=== PATIENT | female | born 1955 | race Caucasian/White ===

== ENCOUNTER 2017-08-03 05:26 | Inpatient (IN) | payer OTHER ==
--- NOTE | 2017-07-31 13:25 | MH ---
cc: Walker PERRY M.D. DATE OF ADMISSION 08/03/2017 ADMITTING DIAGNOSIS Osteoarthritic degeneration left knee HISTORY AND PHYSICAL This is a pleasant 61-year-old diabetic female who is being admitted today for a left total knee arthroplasty due to severe painful osteoarthritic degeneration left knee. OTHER PAST HISTORY Other than diabetes, she has a history of anxiety and hypertension. CURRENT MEDICATIONS Include: 1. Bupropion 2. Exforge 3. Venlafaxine 4. Omeprazole for gastroesophageal reflux disease 5. Lovastatin 6. Fluticasone 7. Nasal spray PAST SURGERIES Include: 1. Appendectomy 2. Three C-sections 3. Hysterectomy 4. 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 Meniscal repair tendon right knee in 2008. REVIEW OF SYSTEMS Noncontributory FAMILY HISTORY Noncontributory SOCIAL HISTORY She does not smoke. Drinks occasionally. ALLERGIES She has no known allergies. PHYSICAL EXAMINATION We find a 61-year female well-developed, well-nourished oriented x3 complaining of pain in the left knee. VITAL SIGNS: Blood pressure 128/82, pulse 89 and regular, respirations 18, temperature 97.9, pulse oximetry 98% on room air. HEENT: Eyes PERRL, EOMI. Ears, nose, mouth clear. NECK: Supple. LUNGS: Clear HEART: Regular rate. ABDOMEN: Soft. Positive bowel sounds, nontender. EXTREMITIES: Reveals the left knee to be exclusively tender along the medial joint surface and proximal medial tibial plateau. IMPRESSION AT THIS TIME Severe osteoarthritic degeneration left knee. PLAN Admission for a left total knee arthroplasty today. The patient given a prescription for postoperative pain and anticoagulation control in the office. She understands to use Hibiclens scrub and Bactroban preoperatively and plans on going home after surgical stay in the hospital with home health care and physical therapy. MD YUE Alberto/JAYDEN /1:11 PM /1:18 PM
[~2017-08-03] VITALS: Ht 162.6 cm; Wt 84.5 kg
[2017-08-03] MEDS ORDERED: ceFAZolin 2 GM PREMIX 50 ML IV SCH (06:00)
[2017-08-03] MEDS ORDERED: CHLORHEXIDINE GLUCONATE 2 % 1 PACK (2 CLOTHS) TOPICAL PRN (06:00)
[2017-08-03] MEDS ORDERED: SODIUM CHLORID 0.9% 500 ML IV PRN (06:00)
[2017-08-03] MEDS ORDERED: METOPROLOL TARTRATE 25 MG TAB PO PRN (06:00)
[2017-08-03] MEDS ORDERED: CHLORHEXIDINE GLUCONATE 4% SOLN 120 ML BTL TOPICAL SCH (06:00)
[2017-08-03] MEDS ORDERED: POVIDONE IODINE 5% (ANTISEPSIS KIT) 4 APPLICATIONS EACH NARE PRN (06:00)
[2017-08-03] MEDS ORDERED: INSULIN HUMAN REGULAR 1,000 UNITS/10 ML VIAL SQ PRN (06:00)
[2017-08-03] MEDS ORDERED: VANCOMYCIN 1000 MG/NS 250 ML (for <70 kg) IV SCH ×2 (06:00)
[2017-08-03] MEDS ORDERED: LACTATED RINGER'S 1000 ML IV PRN (06:00)
[2017-08-03] MEDS ORDERED: IBUP200C PO (06:23)
[2017-08-03] MEDS ORDERED: VENL37.54 PO (06:23)
[2017-08-03] MEDS ORDERED: LOVA20TA PO (06:23)
[2017-08-03] MEDS ORDERED: MULTTAB67 PO (06:23)
[2017-08-03] MEDS ORDERED: BUPR300T PO (06:23)
[2017-08-03] MEDS ORDERED: EXFO10TA2 PO (06:23)
[2017-08-03] MEDS ORDERED: FLUT50SP EACH NARE (06:23)
[2017-08-03] MEDS ORDERED: CRANCAP2 PO (06:23)
[2017-08-03] MEDS ORDERED: OMEP20TA PO (06:23)
[2017-08-03] MEDS ORDERED: BOSW5TAB PO (06:23)
[2017-08-03] MEDS ORDERED: FISHCAP4 PO (06:23)
[2017-08-03] MEDS ORDERED: ceFAZolin INJ 1,000 MG VIAL ONE (07:00)
[2017-08-03 07:15] LABS: APTT (PATIENT) 27.5 SEC (24.3-30.1); PROTHROMBIN TIME - PATIENT 10.6 SEC (9.8-11.6)
[2017-08-03] MEDS ORDERED: ACETAMINOPHEN 1000 MG/100 ML 100 ML IV ONE (07:26)
[2017-08-03] MEDS ORDERED: FAMOTIDINE 20 MG/2 ML VIAL ONE (07:27)
--- NOTE | 2017-08-03 07:56 | HHI.FF ---
Face to Face Verification Diagnosis: (1) Status post total left knee replacement using cement Physical Therapy Gait training Knee: Total knee, Protocol: Left, Full weight bearing Canvas Knee Splint: When in bed & 2 pillows btw thighs Nursing RN: 3 days/week x 2 weeks Nursing: Dressing changes Dressing Changes: Daily dressing change, 4x4s, Gauze, Paper tape I have seen patient Mayra Bello on 08/03/17. My clinical findings support the need for the requested home health care services because: Limited ability to care for self High risk of falls I certify that my clinical findings support that this patient is homebound because: Unsteady gait/balance Walker Fairchild MD Aug 03, 2017 07:56
[2017-08-03] MEDS ORDERED: SODIUM CHLORIDE 0.9% IV SCH ×2 (08:00→11:00)
[2017-08-03] MEDS ORDERED: SODIUM CHLORIDE 0.9% FLUSH 5 ML FLUSH IVF PRN (08:00)
[2017-08-03] MEDS ORDERED: Post-op Orders (for Pharmacy) MISC XX ONE (08:00)
[2017-08-03] MEDS ORDERED: TRANEXAMIC ACID INJ 0 MG in SODIUM CHLORIDE 0.9% INJ 100 ML IV SCH (08:00)
[2017-08-03] MEDS ORDERED: ACETAMINOPHEN 325 MG TAB PO PRN (08:00)
[2017-08-03] MEDS ORDERED: COMMODE 3-IN-11 MIS (08:00)
[2017-08-03] MEDS ORDERED: EXPAREL PERI-ARTICULAR INJECTION (TOTAL VOL. 120 ML) P-ARTICULR SCH ×2 (08:00)
[2017-08-03] MEDS ORDERED: WALKER WHEELS/F1 MIS (08:00)
[2017-08-03] MEDS ORDERED: ONDANSETRON HCL 4 MG/2 ML VIAL IVP PRN (08:00)
[2017-08-03] MEDS ORDERED: NALOXONE HCL 0.4 MG/ML AMP IV PRN (08:00)
[2017-08-03] MEDS ORDERED: diphenhydrAMINE HCL 50 MG/ML VIAL IV PRN (08:00)
[2017-08-03] MEDS ORDERED: TRANEXAMIC ACID IV SCH ×2 (08:00→11:00)
[2017-08-03] MEDS ORDERED: MORPHINE SULFATE 4 MG/ML INJ IV PUSH PRN (08:00)
[2017-08-03] MEDS ORDERED: CPMMACHINE (08:01)
[2017-08-03] MEDS: SODIUM CHLORIDE 0.9% FLUSH 5 ML FLUSH IVF SCH ×2 (09:00→21:00)
[2017-08-03] MEDS ORDERED: NON-FORMULARY DRUG (Boswellia-Glucosamine-Vitamin (Osteo Bi-Flex One A Day) 1 TAB) PO SCH (09:00)
[2017-08-03] MEDS ORDERED: NON-FORMULARY DRUG (Fish Oil-Cholecalciferol (Fish Oil + D3) 1 CAP) PO SCH (09:00)
[2017-08-03] MEDS ORDERED: NON-FORMULARY DRUG (Vitamins C & E (Cranberry Urinary Comfort) 1 CAP) PO SCH (09:00)
[2017-08-03] MEDS: FLUTICASONE PROPIONATE 50 MCG/ACT 16 GM NASAL SPRAY EACH NARE SCH ×2 (10:00→21:00)
[2017-08-03] MEDS: PRAVASTATIN SOD 20 MG TAB PO SCH (10:00)
[2017-08-03] MEDS: VENLAFAXINE HCL XR 37.5 MG CAP PO SCH (10:00)
[2017-08-03] MEDS: PANTOPRAZOLE SOD 20 MG DELAYED RELEASE TAB PO SCH (10:00)
[2017-08-03] MEDS ORDERED: MULTIVITAMIN TAB PO SCH (10:00)
[2017-08-03] MEDS: VALSARTAN 160 MG TAB PO SCH (10:00)
[2017-08-03] MEDS ORDERED: DO NOT ADM ANY ANTICOAGULANT DRUGS PRN (10:22)
--- NOTE | 2017-08-03 10:24 | HHI.PR ---
Immediate Post Op Note Procedure Date: Aug 03, 2017 Pre Op Diagnosis: Osteoarthritic degeneration left knee Post Op Diagnosis: Osteoarthritic degeneration left knee Surgeon: Justa Fairchild MD Excellence Manager(s): Andria DUGGNA Procedure: Left Total Knee Arthroplasty Complications: none Specimen(s) removed: none Estimated blood loss: 100cc Anesthesia: General Drains: None IVF Urinary Output (mLs): 0 (no martin) Tourniquet time (min at mmHg) 300mg Hg for 56 mins Patient to: PACU Patient Condition: Good Implant/Devices: SEE IMPLANT LOG (if applicable) Date/Time of Procedure: SEE SURGICAL CARE RECORD Andria Wilson Aug 03, 2017 10:24
[2017-08-03] MEDS: LACTATED RINGER'S 1000 ML INJ 1,000 ML IV SCH ×2 (11:00→23:30)
--- NOTE | 2017-08-03 11:05 | MP ---
cc: Walker PERRY M.D. DATE OF SURGERY 08/03/2017 PREOPERATIVE DIAGNOSIS Osteoarthritic degeneration left knee. POSTOPERATIVE DIAGNOSIS Osteoarthritic degeneration left knee. SURGERY PERFORMED Left total knee arthroplasty using Consensus components, size 4 femur, size 2 tibia with a 10-mm insert, size 2 patella, two batch of DePuy cement SURGEON Dr. Perry COMMUNITY SUPPORT WORKER URBAN Dee ANESTHESIA General intubation and block. PROCEDURE FOLLOWS After successful induction of anesthesia, the patient is placed on the operating room table in the supine position. The knee is prepped and draped in the usual manner. A tourniquet is inflated at the upper thigh and set to 300 mmHg pressure after exsanguination of the lower extremity. A longitudinal incision is made extending from 3 inches proximal to the superior pole of the patella, across the patella in longitudinal fashion, and down past the insertion of the tibial tubercle into the proximal tibia. The incision is carried down through subcutaneous tissue along the medial aspect of the patella and retinaculum, down through the capsule to expose the knee joint. The patella and patellar tendon are freed up enough to allow the patella to be inverted and retracted off the lateral side of the knee joint. The knee joint is left exposed. Small osteophytes are removed. All soft tissue is removed to allow proper position of the femoral and tibial cutting jig guide. The first femoral jig is then inserted along the distal end of the femur after first measuring to decide whether this is a small, medium, or large component. The notch is then drilled and the tibial cutting guide inserted into the femoral cutting guide, along with the ankle brace to allow for proper measurement of the tibial cutting surface that needed to be resected. Pins are inserted into the tibial cutting jig and femoral cutting jig to hold them in place. An oscillating saw is then used to resect the surface of the tibia. The surface of the tibia is then completely removed using sharp and blunt dissection. The anterior and posterior cuts of the femur are then made as well using an oscillating saw through the cutting guide. All guides are then removed and the varus/valgus angulation cutting guide applied to the femur for proper measurement of the proper amount of valgus. The anterior cutting guide for the femur is then inserted at the anterior femoral cuts made. Next, the first block trial is inserted into the femur to allow for proper condyle drill holes to be made which are then made followed by removal of the bone between the condyles using an oscillating saw as well as the bone removed at the most posterior surface of the condyle. After this, this guide is removed and the chamfer cuts made using the chamfer cutting guide from both anterior and posterior. Next, the femoral trial is then inserted, the tibial surface reflected anterior to expose the tibial surface and a tibial stem guide is inserted after first measuring for a standard, standard plus, large, or large plus surface to be used. After the stem is impacted the trial tibial surface is applied followed by the trial meniscal components. After full range of motion is found with the appropriate length meniscal components varying the patella is prepared by resecting the posterior aspect of the patella using an oscillating saw, inserting a trial. The trial is then removed and the cruciate cutting guide applied using the bur to cut the cruciate cuts. After cruciate cuts are made all trials are removed. The wound is irrigated copiously with antibiotic solution and Water Pik and the actual components inserted into place using Consensus components, size 4 femur, size 2 tibia with a 10-mm insert, size 2 patella, two batch of DePuy cement. After the cement has hardened and the components are found to have full range of motion with no instability, the tourniquet is deflated, total tourniquet time being 57 minutes at 300 mmHg pressure. 100 cc of Exparel was used around the knee joint for extra pain control. Meticulous hemostasis was achieved, the deep fascia approximated with running #2 Quill, the subcutaneous tissue approximated using interrupted and running 2-0 and 3-0 Monocryl sutures, Steri-Strips and sterile dressing and knee immobilizer. No drain was utilized. ESTIMATED BLOOD LOSS 100 cc. COUNTS Sponge and suture counts were correct. DISPOSITION The patient tolerated the procedure well and left the operating room in satisfactory condition. URBAN Dee, was present during the entire procedure to include patient positioning and the procedure. The medical necessity of a nurse practitioner and human resources executive assistant was indicated in this case due to the surgical complexity of the case itself. During the surgical case, the surgical technologist was working the back table while my surgical processor URBAN was directly assisting me. MD YUE Alberto/LASHONDA Craig: 08/03/2017/10:05 AM /10:55 AM
--- NOTE | 2017-08-03 11:26 | RADRPT ---
EXAM DATE/TIME: 08/03/2017 10:36 [facility] COMPARISON: No previous studies available for comparison. INDICATIONS : Post op left knee MEDICAL HISTORY : None. SURGICAL HISTORY : left knee replaced ENCOUNTER: Initial ACUITY: 1 day PAIN SCORE: 6/10 LOCATION: Left knee FINDINGS: Examination of the knee demonstrates arthroplasty in satisfactory position. The alignment is anatomic . CONCLUSION: Post surgical changes as above. Jordy Corona MD on August 03, 2017 at 11:14 Board Certified Radiologist. This report was verified electronically.
[2017-08-03] MEDS ORDERED: LACTATED RINGER'S 1000 ML INJ 1,000 ML IV ONE (12:00)
[2017-08-03] MEDS ORDERED: ePHEDrine/NS 25 MG/5 ML SYR IV ONE (12:00)
[2017-08-03] MEDS ORDERED: PROPOFOL 200 MG/20 ML AMP IV ONE (12:00)
[2017-08-03] MEDS ORDERED: LIDOCAINE HCL 1% PF 5 ML AMPULE OTHER ONE (12:00)
[2017-08-03] MEDS ORDERED: GLYCOPYRROLATE 1 MG/5 ML SYRINGE IV PUSH ONE (12:00)
[2017-08-03] MEDS ORDERED: MIDAZOLAM HCL 2 MG/2 ML VIAL IV ONE (12:00)
[2017-08-03] MEDS ORDERED: ROCURONIUM INJ 50 MG/5 ML VIAL IV ONE (12:00)
[2017-08-03] MEDS ORDERED: DEXAMETHASONE SOD PHOS 4 MG/ML VIAL IV ONE (12:00)
[2017-08-03] MEDS ORDERED: NEOSTIGMINE 3 MG/3 ML SYR IV ONE (12:00)
[2017-08-03] MEDS ORDERED: PHENYLEPH/NS 1000 MCG/10 ML SYR IV ONE (12:00)
[2017-08-03] MEDS ORDERED: ONDANSETRON HCL 4 MG/2 ML VIAL IV PUSH ONE (12:00)
[2017-08-03 14:30] VITALS: BP 130/78; PULSE 98; RESP 16; TEMP 98.9; O2SAT 95
[2017-08-03] MEDS ORDERED: *morphine SULFATE 8 MG/ML PERIprocedure ONLY ONE (15:24)
--- NOTE | 2017-08-03 16:58 | PD.CONS ---
HPI Service [facility] Consult Requested By Dr. Fairchild Reason for Consult Medical management Primary Care Physician Ad Caputo MD Diagnoses: History of Present Illness 61-year-old female with a medical history significant for osteoarthritis, anxiety, and hypertension admitted to the hospital for left total knee arthroplasty. Patient reports she has had issues with osteoarthritis of the left knee for over a year. She has tried conservative management including injections with no improvement. She reports her blood pressure has been stable on her current medications. Anxiety has been controlled as well. She is seen postoperatively in the PACU. She is currently comfortable. Pain is controlled. Review of Systems Constitutional: DENIES: Fever, Chills Musculoskeletal: COMPLAINS OF: Joint pain, Stiffness Except as stated in HPI: all other systems reviewed are Neg Past Family Social History Allergies: Coded Allergies: No Known Allergies (Unverified , 08/03/17) Past Medical History Osteoarthritis Hypertension Hyperlipidemia Anxiety Diabetes, diet-controlled. 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 Reported Medications Reported Meds & Active Scripts Active Reported Cranberry Urinary Comfort (Vitamins C & E) 1 Cap 1 Cap PO DAILY Fish Oil + D3 (Fish Oil-Cholecalciferol) 1,200-1,000 Mg-Unit Cap 1 Cap PO DAILY Multiple Vitamin 1 Tab 1 Tab PO DAILY Ibuprofen 200 Mg Cap 200 Mg PO Q4H PRN Osteo Bi-Flex One A Day (Cyggvgmmk-Somrzftplry-Hhbghjw) 1 Tab 1 Tab PO DAILY Fluticasone Nasal [place] 50 Mcg/Act Naspr 50 Mcg EACH NARE BID 50 mcg/spray Lovastatin 20 Mg Tab 20 Mg PO DAILY Omeprazole 20 Mg Tab 20 Mg PO DAILY Venlafaxine ER 24 HR (Venlafaxine HCl) 37.5 Mg Tab 37.5 Mg PO DAILY Exforge (Amlodipine-Valsartan) 10-320 Mg Tab 1 Tab PO DAILY Bupropion HCl ER 24 HR (Bupropion HCl) 300 Mg Tab 300 Mg PO DAILY Family History Reviewed and is noncontributory. Social History Patient does not smoke. She drinks a couple glasses of wine daily. No history of withdrawals. No drug use. Physical Exam Vital Signs Vital Signs Date Time Temp Pulse Resp B/P (MAP) Pulse Ox O2 Delivery O2 Flow Rate FiO2 08/03/17 15:00 99 17 126/72 (90) 98 Nasal Cannula 3 08/03/17 14:00 90 17 128/75 (92) 98 Nasal Cannula 3 08/03/17 13:30 98 15 135/78 (97) 96 Nasal Cannula 3 08/03/17 13:00 100 15 117/75 (89) 96 Nasal Cannula 3 08/03/17 12:30 96 15 121/72 (88) 96 Nasal Cannula 3 08/03/17 12:00 96 16 125/75 (92) 96 Nasal Cannula 3 08/03/17 11:30 98 16 113/70 (84) 94 Nasal Cannula 3 08/03/17 11:15 97 16 125/78 (94) 95 Nasal Cannula 3 08/03/17 11:00 93 16 118/74 (89) 95 Nasal Cannula 3 08/03/17 10:45 94 17 108/69 (82) 95 Nasal Cannula 3 08/03/17 10:30 94 15 110/65 (80) 95 Nasal Cannula 3 08/03/17 10:24 98.1 95 15 111/64 (80) 95 Nasal Cannula 3 08/03/17 06:25 98.0 86 18 145/85 (105) 98 Physical Exam GENERAL: This is a well-nourished, well-developed patient, in no apparent distress. SKIN: No rashes, ecchymoses or lesions. Cool and dry. HEAD: Atraumatic. Normocephalic. No temporal or scalp tenderness. EYES: Pupils equal round and reactive. Extraocular motions intact. No scleral icterus. No injection or drainage. ENT: Nose without bleeding, purulent drainage or septal hematoma. Throat without erythema, tonsillar hypertrophy or exudate. Uvula midline. Airway patent. NECK: Trachea midline. No JVD or lymphadenopathy. Supple, nontender, no meningeal signs. CARDIOVASCULAR: Regular rate and rhythm without murmurs, gallops, or rubs. RESPIRATORY: Clear to auscultation. Breath sounds equal bilaterally. No wheezes , rales, or rhonchi. GASTROINTESTINAL: Abdomen soft, non-tender, nondistended. No hepato-splenomegaly , or palpable masses. No guarding. MUSCULOSKELETAL: Left knee and postsurgical dressing. Neurovascularly intact at the toes. NEUROLOGICAL: Awake and alert. Cranial nerves II through XII intact. Motor and sensory grossly within normal limits. Five out of 5 muscle strength in all muscle groups. Normal speech. Laboratory Laboratory Tests Test 10/2/17 06:40 Prothrombin Time 10.6 Prothromb Time International Ratio 1.0 Activated Partial Thromboplast Time 27.5 Assessment and Plan Problem List: (1) Osteoarthritis of left knee ICD Code: M17.12 - Unilateral primary osteoarthritis, left knee Plan: Status post left knee arthroplasty. Continue routine postoperative care per orthopedics. Pain control, PT. (2) Status post total left knee replacement using cement ICD Code: Z96.652 - Presence of left artificial knee joint (3) Hypertension ICD Code: I10 - Essential (primary) hypertension Plan: Currently controlled on amlodipine and valsartan. Continue to monitor. (4) Anxiety ICD Code: F41.9 - Anxiety disorder, unspecified Plan: Continue bupropion and Effexor. (5) Diabetes ICD Code: E11.9 - Type 2 diabetes mellitus without complications Plan: Diet controlled, on no medications. Diabetic diet, check BMP in a.m. Assessment and Plan Thank you for allowing me to participate in the care of Mrs. Bello. Will continue to follow. Ankush Lawrence MD Aug 03, 2017 16:58
[2017-08-03] MEDS: ACETAMINOPHEN/HYDROcodone 325 MG/7.5 MG TAB PO PRN ×2 (18:38→22:33)
--- NOTE | 2017-08-03 19:22 | EKG ---
Date Performed: 08/03/2017 Time Performed: 06:45:47 PTAGE: 61 years EKG: Sinus rhythm INCOMPLETE RIGHT BUNDLE BRANCH BLOCK BORDERLINE ECG NO PREVIOUS TRACING DOCTOR: Bakari Orlando Interpretating Date/Time 08/03/2017 19:20:21
[2017-08-03 20:00] VITALS: BP 156/90; PULSE 98; RESP 22; TEMP 98.1; O2SAT 98
[2017-08-03] MEDS: buPROPion HCL 150 MG SUSTAINED RELEASE TAB PO SCH ×2 (21:00→22:34)
[2017-08-03] MEDS ORDERED: TEMAZEPAM 15 MG CAP PO PRN (21:00)
[2017-08-04] VITALS (8 sets, daily range): BP systolic 113–129; BP diastolic 69–84; PULSE 74–92; RESP 16–20; TEMP 96–98.5; O2SAT 94–96
[2017-08-04] MEDS: ACETAMINOPHEN/HYDROcodone 325 MG/7.5 MG TAB PO PRN ×5 (04:29→20:56)
[2017-08-04] MEDS: PANTOPRAZOLE SOD 20 MG DELAYED RELEASE TAB PO SCH (08:45)
[2017-08-04] MEDS: VALSARTAN 160 MG TAB PO SCH (08:46)
[2017-08-04] MEDS: buPROPion HCL 150 MG SUSTAINED RELEASE TAB PO SCH ×2 (08:46→20:55)
[2017-08-04] MEDS: APIXABAN 2.5 MG TABLET PO SCH ×2 (08:47→20:55)
[2017-08-04] MEDS: VENLAFAXINE HCL XR 37.5 MG CAP PO SCH (08:47)
[2017-08-04] MEDS: PRAVASTATIN SOD 20 MG TAB PO SCH (08:47)
[2017-08-04] MEDS: FLUTICASONE PROPIONATE 50 MCG/ACT 16 GM NASAL SPRAY EACH NARE SCH ×2 (08:47→20:56)
[2017-08-04] MEDS: SODIUM CHLORIDE 0.9% FLUSH 5 ML FLUSH IVF SCH ×2 (08:48→20:56)
[2017-08-04 10:17] LABS: REVIEW FLAG FINAL
[2017-08-04 10:22] LABS: BICARBONATE 27.5 MEQ/L (21.0-32.0); POTASSIUM 3.9 MEQ/L (3.5-5.1)
--- NOTE | 2017-08-04 11:11 | PD.ORT.PN ---
Subjective Subjective Remarks pt comfortable without complaints. Objective Vitals Vital Signs Date Time Temp Pulse Resp B/P (MAP) Pulse Ox O2 Delivery O2 Flow Rate FiO2 08/04/17 09:50 18 08/04/17 07:43 96.5 77 18 126/79 (95) 95 08/04/17 04:00 97.9 74 20 129/73 (91) 94 08/04/17 03:59 95 08/04/17 00:00 97.6 75 20 113/69 (84) 94 08/03/17 20:00 98.1 98 22 156/90 (112) 98 08/03/17 19:27 Room Air 08/03/17 16:30 98.2 99 17 131/80 (97) 98 Nasal Cannula 3 08/03/17 15:00 99 17 126/72 (90) 98 Nasal Cannula 3 08/03/17 14:30 98.9 98 16 130/78 (95) 95 08/03/17 14:00 90 17 128/75 (92) 98 Nasal Cannula 3 08/03/17 13:30 98 15 135/78 (97) 96 Nasal Cannula 3 08/03/17 13:00 100 15 117/75 (89) 96 Nasal Cannula 3 08/03/17 12:30 96 15 121/72 (88) 96 Nasal Cannula 3 08/03/17 12:00 96 16 125/75 (92) 96 Nasal Cannula 3 08/03/17 11:30 98 16 113/70 (84) 94 Nasal Cannula 3 08/03/17 11:15 97 16 125/78 (94) 95 Nasal Cannula 3 I/O 08/03/17 08/03/17 08/03/17 08/04/17 08/04/17 08/04/17 07:00 15:00 23:00 07:00 15:00 23:00 Intake Total 1800 ml 905 ml 1610 ml 260 ml Output Total 3100 ml 0 ml Balance -1300 ml 905 ml 1610 ml 260 ml Intake Oral 480 ml 480 ml IV Total 1800 ml 425 ml 1130 ml 260 ml Output Urine Total 0 ml Estimated Blood Loss 100 ml Other 3000 ml # Voids 2 Result Diagram: 08/04/17 0808 08/04/17 0808 Objective Remarks Sitting up in chair. Dressing dry and intact. No calf tenderness. Assessment & Plan Ortho Post Op Day #: 1 Problem List: Assessment and Plan Cont PT, daily wound care. Regular diet. Home tomorrow with HHC and PT. Walker Fairchild MD Aug 04, 2017 11:11
--- NOTE | 2017-08-04 11:16 | HHI.DS ---
Discharge Summary Admission Date Aug 03, 2017 at 05:26 Discharge Date: Aug 05, 2017 Admitting Diagnosis Osteoarthritic degeneration left knee Diagnosis: (1) Status post total left knee replacement using cement Diagnosis: Principal ICD Codes: Z96.652 - Presence of left artificial knee joint Brief History This is a 61 year old female patient CBC/BMP: 08/04/17 0808 08/04/17 0808 Significant Findings Laboratory Tests Test 08/03/17 06:40 08/04/17 08:08 Estimat Glomerular Filtration Rate 75 ML/MIN (>89) PE at Discharge Sitting up in chair. Dressing dry and intact. No calf tenderness. Hospital Course Patient underwent a left total knee arthroplasty on day of admission. She received a course of prophylactic IV antibiotics and within 23 hours started on anticoagulation therapy. She remained afebrile vital signs stable and neurovascularly intact tolerating food and fluid well. He tolerated by mouth pain meds as well received daily wound care and was discharged on second postoperative day to home with home healthcare and physical therapy in good condition with instructions for follow-up appointment in the office. Pt Condition on Discharge: Good Discharge Disposition: Disch w/ Home Health Serv Discharge Instructions Diet Instructions: As Tolerated, No Restrictions Activities You Can Perform: Weight Bearing as Deandre, Shower Only-No Bath Activities to Avoid: Bathing, Driving Walker Fairchild MD Aug 04, 2017 11:16
--- NOTE | 2017-08-04 18:13 | HHI.PR ---
Subjective Remarks Follow-up total left knee arthroplasty, hypertension, diabetes, and anxiety. Knee pain reported to be well controlled. Noted to 5/10 at time of interview. Pt asking for pain medications "every [address] Fairchild told me to do." Pt stated she was walking "since yesterday afternoon." Pt denied blood pressure issues this morning. Pt stated her diabetes is well controlled with diet. She has not been on her medication for 9 months, has lost 20 pounds and her last Ha1c was "5.4 two weeks ago." Anxiety is reported to be well controlled with home medications. No acute issues reported by pt. Pt denied fever, chills, NVD, Abdominal/chest pain, cough/shortness of breath. Per RN (Bri) no acute issues noted or reported over night or since start of shift. Objective Vitals Vital Signs Date Time Temp Pulse Resp B/P (MAP) Pulse Ox O2 Delivery O2 Flow Rate FiO2 08/04/17 16:00 97.1 91 18 125/71 (89) 94 08/04/17 13:52 18 08/04/17 11:47 96.0 92 18 123/84 (97) 96 08/04/17 07:43 96.5 77 18 126/79 (95) 95 08/04/17 04:00 97.9 74 20 129/73 (91) 94 08/04/17 03:59 95 08/04/17 00:00 97.6 75 20 113/69 (84) 94 08/03/17 20:00 98.1 98 22 156/90 (112) 98 08/03/17 19:27 Room Air I/O 08/03/17 08/03/17 08/03/17 08/04/17 08/04/17 08/04/17 07:00 15:00 23:00 07:00 15:00 23:00 Intake Total 1800 ml 905 ml 1610 ml 1110 ml Output Total 3100 ml 0 ml Balance -1300 ml 905 ml 1610 ml 1110 ml Intake Oral 480 ml 480 ml 850 ml IV Total 1800 ml 425 ml 1130 ml 260 ml Output Urine Total 0 ml Estimated Blood Loss 100 ml Other 3000 ml # Voids 2 2 Result Diagram: 08/04/17 0808 08/04/17 0808 Imaging Last Impressions Knee X-Ray 08/03/17 0000 Signed Impressions: Service Date/Time: Thursday, August 03, 2017 10:36 - CONCLUSION: Post surgical changes as above. Jordy Corona MD Objective Remarks GENERAL: Patient sitting comfortably in chair at bedside, NAD. at bedside. SKIN: Warm and dry. Left knee wrapped with Kerlix. HEAD: Normocephalic. EYES: No scleral icterus. No injection or drainage. NECK: Supple, trachea midline. No lymphadenopathy. CARDIOVASCULAR: Regular rate and rhythm without murmurs, gallops, or rubs. RESPIRATORY: Breath sounds equal bilaterally. No wheezes rhonchi or crackles. No accessory muscle use. GASTROINTESTINAL: Abdomen soft, non-tender, nondistended. MUSCULOSKELETAL: No cyanosis, or edema. PSYCHIATRIC: Appropriate mood and affect; insight and judgment normal. Patient was pleasant and cooperative. Speech was clear and fluent. Procedures Total left knee arthroplasty (08/03/17). Medications and IVs Current Medications Medications (Trade) Dose Ordered Sig/Delilah Route Start Time Stop Time Status Last Admin (Hibiclens 4% Top Soln) 1 applic ONCE TOPICAL 08/03/17 06:00 08/06/17 05:59 08/03/17 06:30 Cefazolin Sodium/ Dextrose 50 ml @ 100 mls/hr AIRPLANE REFUELER IV 08/03/17 06:00 08/06/17 05:59 08/03/17 08:33 Vancomycin HCl 1000 mg/Sodium Chloride 250 ml @ 250 mls/hr AIRPLANE REFUELER IV 08/03/17 06:00 08/06/17 05:59 08/03/17 06:57 (Lopressor) 25 mg AIRPLANE REFUELER PRN PO 08/03/17 06:00 08/06/17 05:59 (Betadine 5% Antisepsis Kit) 1 applic AIRPLANE REFUELER PRN EACH NARE 08/03/17 06:00 08/06/17 05:59 (Chlorhexidine 2% Cloth) 3 pack AIRPLANE REFUELER PRN TOPICAL 08/03/17 06:00 08/06/17 05:59 08/03/17 05:40 (NovoLIN R INJ) See Protocol Table ... AIRPLANE REFUELER PRN SQ 08/03/17 06:00 08/06/17 05:59 (Wellbutrin Sr) 150 mg BID PO 08/03/17 10:00 08/04/17 08:46 (Flonase Anurag Spr) 1 spray BID EACH NARE 08/03/17 10:00 08/04/17 08:47 (Pravachol) 20 mg DAILY PO 08/03/17 10:00 08/04/17 08:47 (Effexor Xr) 37.5 mg DAILY PO 08/03/17 10:00 08/04/17 08:47 (Norvasc) 10 mg DAILY PO 08/03/17 10:00 08/04/17 08:46 (Protonix) 20 mg DAILY PO 08/03/17 10:00 08/04/17 08:45 (NS Flush) 2 ml UNSCH PRN IVF 08/03/17 08:00 (NS Flush) 2 ml BID IVF 08/03/17 09:00 08/04/17 08:48 ([place] 7.5-325 Mg) 1 tab Q4H PRN PO 08/03/17 08:00 08/04/17 04:29 ([place] 7.5-325 Mg) 2 tab Q4H PRN PO 08/03/17 08:00 08/04/17 16:51 (Tylenol) 650 mg Q6H PRN PO 08/03/17 08:00 (Theragran M Tab) 1 tab BID PO 08/04/17 21:00 10/03/17 20:59 (Zofran Inj) 4 mg Q6H PRN IVP 08/03/17 08:00 (Colace) 100 mg BID PO 08/04/17 21:00 (Restoril) 15 mg HS PRN PO 08/03/17 21:00 (Bacitracin Oint Packet) 0.9 gm UNSCH X1 PRN TOP 08/05/17 10:15 08/07/17 10:14 (Narcan Inj) 0.4 mg UNSCH PRN IV 08/03/17 08:00 (Benadryl Inj) 25 mg Q6H PRN IV 08/03/17 08:00 (Eliquis) 2.5 mg BID PO 08/04/17 09:00 08/04/17 08:47 (Morphine Inj) 4 mg Q3H PRN IV PUSH 08/03/17 08:00 (Diovan) 320 mg DAILY PO 08/03/17 10:00 08/04/17 08:46 Urinary Catheter: No A/P Problem List: (1) Osteoarthritis of left knee ICD Code: M17.12 - Unilateral primary osteoarthritis, left knee Status: Chronic (2) Status post total left knee replacement using cement ICD Code: Z96.652 - Presence of left artificial knee joint Status: Acute (3) Hypertension ICD Code: I10 - Essential (primary) hypertension Status: Chronic (4) Anxiety ICD Code: F41.9 - Anxiety disorder, unspecified Status: Chronic (5) Diabetes ICD Code: E11.9 - Type 2 diabetes mellitus without complications Assessment and Plan 61-year-old female with a medical history significant for osteoarthritis, anxiety, and hypertension admitted to the hospital for left total knee arthroplasty. Patient reports she has had issues with osteoarthritis of the left knee for over a year. She has tried conservative management including injections with no improvement. She reports her blood pressure has been stable on her current medications. Anxiety has been controlled as well. Status post total left knee arthroplasty -Rehabilitation per orthopedics. -Pain management per orthopedics. -Physical therapy/occupational therapy. Hypertension -Currently controlled on amlodipine and valsartan. -Continue to monitor. -Blood pressure stable over the past 24 hours. Anxiety: -Continue bupropion and Effexor. -Patient's mood stable. Diabetes: -Continue diet. -Blood glucose 101 (08/04/17). DVT prophylaxis -Apixaban 2.5 mg by mouth twice a day per orthopedics. Discussed with pt, her (at bedside), RN, and Dr. Lawrence. Discharge Planning Per note patient will be discharged to home with home health care. Problem Qualifiers (1) Osteoarthritis of left knee: Qualified Codes: M17.12 - Unilateral primary osteoarthritis, left knee (2) Hypertension: Qualified Codes: I10 - Essential (primary) hypertension (3) Diabetes: Qualified Codes: E11.9 - Type 2 diabetes mellitus without complications Johnie Rankin Jr. Aug 04, 2017 18:12
[2017-08-04] MEDS: DOCUSATE SODIUM 100 MG CAP PO SCH (20:55)
[2017-08-04] MEDS: MULTIVITAMINS/MINERALS THERAPEUTIC TAB PO SCH (20:55)
[2017-08-05] MEDS: ACETAMINOPHEN/HYDROcodone 325 MG/7.5 MG TAB PO PRN ×3 (00:44→09:50)
[2017-08-05 00:47] VITALS: BP 119/69; PULSE 79; RESP 16; TEMP 96.9; O2SAT 96
[2017-08-05 05:41] VITALS: BP 129/82; PULSE 87; RESP 16; TEMP 96.5; O2SAT 96
[2017-08-05 06:18] LABS: HEMATOCRIT 32.8 % (35.0-46.0); REVIEW FLAG FINAL
--- NOTE | 2017-08-05 07:44 | PD.ORT.PN ---
Subjective Subjective Remarks pt comfortable without complaints. Objective Vitals Vital Signs Date Time Temp Pulse Resp B/P (MAP) Pulse Ox O2 Delivery O2 Flow Rate FiO2 08/05/17 05:41 96.5 87 16 129/82 (98) 96 08/05/17 00:47 96.9 79 16 119/69 (86) 96 08/04/17 21:51 95 08/04/17 20:20 98.5 88 16 114/69 (84) 94 08/04/17 18:59 Room Air 08/04/17 17:51 18 08/04/17 16:00 97.1 91 18 125/71 (89) 94 08/04/17 11:47 96.0 92 18 123/84 (97) 96 I/O 08/04/17 08/04/17 08/04/17 08/05/17 08/05/17 08/05/17 07:00 15:00 23:00 07:00 15:00 23:00 Intake Total 1610 ml 1110 ml 480 ml 240 ml Balance 1610 ml 1110 ml 480 ml 240 ml Intake Oral 480 ml 850 ml 480 ml 240 ml IV Total 1130 ml 260 ml # Voids 2 2 1 1 # Bowel Movements 0 0 Result Diagram: 08/05/17 0547 08/04/17 0808 Objective Remarks Sitting up in bed. Dressing dry and intact. No calf tenderness. Assessment & Plan Ortho Post Op Day #: 2 Problem List: (1) Status post total left knee replacement using cement ICD Codes: Z96.652 - Presence of left artificial knee joint Status: Acute Assessment and Plan Cont PT, daily wound care. Regular diet. Home today with C and PT. Walker Fairchild MD Aug 05, 2017 07:44
[2017-08-05 07:58] VITALS: BP 126/75; PULSE 92; RESP 19; TEMP 95.9; O2SAT 93
[2017-08-05] MEDS: PRAVASTATIN SOD 20 MG TAB PO SCH (09:00)
[2017-08-05] MEDS: FLUTICASONE PROPIONATE 50 MCG/ACT 16 GM NASAL SPRAY EACH NARE SCH (09:00)
[2017-08-05] MEDS: SODIUM CHLORIDE 0.9% FLUSH 5 ML FLUSH IVF SCH (09:00)
[2017-08-05] MEDS: APIXABAN 2.5 MG TABLET PO SCH (09:51)
[2017-08-05] MEDS: DOCUSATE SODIUM 100 MG CAP PO SCH (09:51)
[2017-08-05] MEDS: buPROPion HCL 150 MG SUSTAINED RELEASE TAB PO SCH (09:51)
[2017-08-05] MEDS: MULTIVITAMINS/MINERALS THERAPEUTIC TAB PO SCH (09:51)
[2017-08-05] MEDS: VALSARTAN 160 MG TAB PO SCH (09:51)
[2017-08-05] MEDS: VENLAFAXINE HCL XR 37.5 MG CAP PO SCH (09:51)
[2017-08-05] MEDS: PANTOPRAZOLE SOD 20 MG DELAYED RELEASE TAB PO SCH (09:51)
[2017-08-05] MEDS ORDERED: BACITRACIN OINT 0.9 GM PKT TOP PRN (10:15)
--- NOTE | 2017-08-05 10:15 | HHI.PR ---
Subjective Remarks Follow-up total left knee arthroplasty, hypertension, diabetes, and anxiety. Knee pain reported to be well controlled. Noted to 10 at time of interview; having just finished PT. Pt stated upon waking pain was "0-1". Pt stated she has been walking daily. Pt stated she is "anxious to go home." Stated Dr. Fairchild "said I could be discharged today." No acute issues reported by pt. Pt denied fever, chills, NVD, Abdominal/chest pain, cough/shortness of breath. No issues reported with bowel or bladder. Per RN (Bri) no acute issues noted or reported over night or since start of shift. Nurse reports pt is to attend a class this afternoon and then be discharged. Objective Vitals Vital Signs Date Time Temp Pulse Resp B/P (MAP) Pulse Ox O2 Delivery O2 Flow Rate FiO2 08/05/17 07:58 95.9 92 19 126/75 (92) 93 08/05/17 05:41 96.5 87 16 129/82 (98) 96 08/05/17 00:47 96.9 79 16 119/69 (86) 96 08/04/17 21:51 95 08/04/17 20:20 98.5 88 16 114/69 (84) 94 08/04/17 18:59 Room Air 08/04/17 17:51 18 08/04/17 16:00 97.1 91 18 125/71 (89) 94 08/04/17 11:47 96.0 92 18 123/84 (97) 96 I/O 08/04/17 08/04/17 08/04/17 08/05/17 08/05/17 08/05/17 07:00 15:00 23:00 07:00 15:00 23:00 Intake Total 1610 ml 1110 ml 480 ml 240 ml Balance 1610 ml 1110 ml 480 ml 240 ml Intake Oral 480 ml 850 ml 480 ml 240 ml IV Total 1130 ml 260 ml # Voids 2 2 1 1 # Bowel Movements 0 0 Result Diagram: 08/05/17 0547 08/04/17 0808 Imaging Last Impressions Knee X-Ray 08/03/17 0000 Signed Impressions: Service Date/Time: Thursday, August 03, 2017 10:36 - CONCLUSION: Post surgical changes as above. Jordy Corona MD Objective Remarks GENERAL: Patient laying comfortably in bed, NAD. at bedside. Pt had just been returned to bed after completing PT. SKIN: Warm and dry. Bandage noted on left knee covering recent surgical site. Bandage was dry and without signs of drainage or blood.. HEAD: Normocephalic. EYES: No scleral icterus. No injection or drainage. NECK: Supple, trachea midline. No lymphadenopathy. CARDIOVASCULAR: Regular rate and rhythm without murmurs, gallops, or rubs. RESPIRATORY: Breath sounds equal bilaterally. No wheezes rhonchi or crackles. No accessory muscle use. GASTROINTESTINAL: Abdomen soft, non-tender, nondistended. MUSCULOSKELETAL: No cyanosis, or edema. PSYCHIATRIC: Appropriate mood and affect; insight and judgment normal. Patient was pleasant and cooperative. Speech was clear and fluent. Procedures Total left knee arthroplasty (08/03/17). Medications and IVs Current Medications Medications (Trade) Dose Ordered Sig/Delilah Route Start Time Stop Time Status Last Admin (Hibiclens 4% Top Soln) 1 applic ONCE TOPICAL 08/03/17 06:00 08/06/17 05:59 08/03/17 06:30 Cefazolin Sodium/ Dextrose 50 ml @ 100 mls/hr HOOK TENDER IV 08/03/17 06:00 08/06/17 05:59 08/03/17 08:33 Vancomycin HCl 1000 mg/Sodium Chloride 250 ml @ 250 mls/hr HOOK TENDER IV 08/03/17 06:00 08/06/17 05:59 08/03/17 06:57 (Lopressor) 25 mg HOOK TENDER PRN PO 08/03/17 06:00 08/06/17 05:59 (Betadine 5% Antisepsis Kit) 1 applic HOOK TENDER PRN EACH NARE 08/03/17 06:00 08/06/17 05:59 (Chlorhexidine 2% Cloth) 3 pack HOOK TENDER PRN TOPICAL 08/03/17 06:00 08/06/17 05:59 08/03/17 05:40 (NovoLIN R INJ) See Protocol Table ... HOOK TENDER PRN SQ 08/03/17 06:00 08/06/17 05:59 (Wellbutrin Sr) 150 mg BID PO 08/03/17 10:00 08/05/17 09:51 (Flonase Anurag Spr) 1 spray BID EACH NARE 08/03/17 10:00 08/04/17 08:47 (Pravachol) 20 mg DAILY PO 08/03/17 10:00 08/05/17 09:00 (Effexor Xr) 37.5 mg DAILY PO 08/03/17 10:00 08/05/17 09:51 (Norvasc) 10 mg DAILY PO 08/03/17 10:00 08/05/17 09:51 (Protonix) 20 mg DAILY PO 08/03/17 10:00 08/05/17 09:51 (NS Flush) 2 ml UNSCH PRN IVF 08/03/17 08:00 (NS Flush) 2 ml BID IVF 08/03/17 09:00 08/04/17 20:56 ([place] 7.5-325 Mg) 1 tab Q4H PRN PO 08/03/17 08:00 08/05/17 05:44 ([place] 7.5-325 Mg) 2 tab Q4H PRN PO 08/03/17 08:00 08/05/17 09:50 (Tylenol) 650 mg Q6H PRN PO 08/03/17 08:00 (Theragran M Tab) 1 tab BID PO 08/04/17 21:00 10/03/17 20:59 08/05/17 09:51 (Zofran Inj) 4 mg Q6H PRN IVP 08/03/17 08:00 (Colace) 100 mg BID PO 08/04/17 21:00 08/05/17 09:51 (Restoril) 15 mg HS PRN PO 08/03/17 21:00 (Bacitracin Oint Packet) 0.9 gm UNSCH X1 PRN TOP 08/05/17 10:15 08/07/17 10:14 (Narcan Inj) 0.4 mg UNSCH PRN IV 08/03/17 08:00 (Benadryl Inj) 25 mg Q6H PRN IV 08/03/17 08:00 (Eliquis) 2.5 mg BID PO 08/04/17 09:00 08/05/17 09:51 (Morphine Inj) 4 mg Q3H PRN IV PUSH 08/03/17 08:00 (Diovan) 320 mg DAILY PO 08/03/17 10:00 08/05/17 09:51 Urinary Catheter: No A/P Problem List: (1) Osteoarthritis of left knee ICD Code: M17.12 - Unilateral primary osteoarthritis, left knee Status: Chronic (2) Status post total left knee replacement using cement ICD Code: Z96.652 - Presence of left artificial knee joint Status: Acute (3) Hypertension ICD Code: I10 - Essential (primary) hypertension Status: Chronic (4) Anxiety ICD Code: F41.9 - Anxiety disorder, unspecified Status: Chronic (5) Diabetes ICD Code: E11.9 - Type 2 diabetes mellitus without complications Assessment and Plan 61-year-old female with a medical history significant for osteoarthritis, anxiety, and hypertension admitted to the hospital for left total knee arthroplasty. Patient reports she has had issues with osteoarthritis of the left knee for over a year. She has tried conservative management including injections with no improvement. She reports her blood pressure has been stable on her current medications. Anxiety has been controlled as well. Status post total left knee arthroplasty: Pain well controlled. Post operative anemia: hemoglobin 11.1 (down from 11.9 on 08/04) and hematocrit 32.8 (down from 35 on 08/04). Hypertension: BP normotensive over past 24 hours. Anxiety: Controlled. Pt is stable at this time. Status post total left knee arthroplasty -Rehabilitation per orthopedics. -Pain management per orthopedics. -Physical therapy/occupational therapy. Hypertension -Currently controlled on amlodipine and valsartan. -Continue to monitor. -Blood pressure stable over the past 24 hours. Anxiety: -Continue bupropion and Effexor. -Patient's mood stable. Diabetes: -Continue diet. -Blood glucose 101 (08/04/17). DVT prophylaxis -Apixaban 2.5 mg by mouth twice a day per orthopedics. Discussed with pt, her (at bedside), RN, and Dr. Lawrence. Discharge Planning Per note patient will be discharged to home with home health care. Problem Qualifiers (1) Osteoarthritis of left knee: Qualified Codes: M17.12 - Unilateral primary osteoarthritis, left knee (2) Hypertension: Qualified Codes: I10 - Essential (primary) hypertension (3) Diabetes: Qualified Codes: E11.9 - Type 2 diabetes mellitus without complications Johnie Rankin Jr. Aug 05, 2017 10:14
== END 2017-08-05 11:07 | disposition home health service (06) | DRG 470 ==
LOC: HSDI 05:26 → N06B 16:59
PROVIDERS: ADMIT Surgery; ATTEND Surgery
PROC: 3E0T3BZ Introduction of Anesthetic Agent into Peripheral Nerves and Plexi, Percutaneous Approach (ICD-10-PCS; 2017-08-03)
PROC: 0SRD0J9 Replacement of Left Knee Joint with Synthetic Substitute, Cemented, Open Approach (ICD-10-PCS; principal; 2017-08-03 07:42)
DX: M17.12 Unilateral primary osteoarthritis, left knee (principal); I10 Essential (primary) hypertension; E11.9 Type 2 diabetes mellitus without complications; E78.5 Hyperlipidemia, unspecified; D64.9 Anemia, unspecified; F41.9 Anxiety disorder, unspecified
CPT/HCPCS: 73560; 80048; 85014; 85018; 85610; 85730; 86850; 86900; 86901; 93005; 94150; C1776; C9290; J0131; J0690; J1100; J2250; J2270; J2370; J2405; J2710; J3010; J3370; J7050; J7120; L1830